=== PATIENT | male | born 1985 | race Caucasian/White ===

== ENCOUNTER 2017-06-11 12:17 | Emergency (ER) | payer BC, OTHER ==
[~2017-06-11] VITALS: Ht 182.9 cm; Wt 124.7 kg
[~2017-06-11 12:17] MED LIST: CLON0.1T PO; LISI10TA2 PO; METO-352 PO; TRM50T PO
--- OUTSIDE RECORDS SUMMARY | 2017-06-11 12:22 | XMS REPORT ---
Author Author JESSIKA PALMER Organization [employer] Address Unknown Phone Unavailable Care Team Providers Care Planning Director Name Role Phone JESSIKA PALMER CP Unavailable Allergies No Known Allergies Problems Problem Type Condition Code Onset Dates Condition Status Assessment Essential hypertension, hypertension with unspecified goal I10 Active Problem Morbid obesity 278.01 Active Problem Nondependent tobacco use disorder 305.1 Active Problem Essential hypertension 401.9 Active Problem GERD (gastroesophageal reflux disease) 530.81 Active Problem Essential hypertension, hypertension with unspecified goal I10 Active Problem Unspecified site of ankle sprain and strain 845.00 Active Problem 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
--- OUTSIDE RECORDS SUMMARY | 2017-06-11 12:23 | XMS REPORT ---
Author Author JESSIKA PALMER Organization [employer] Address Unknown Phone Unavailable Care Team Providers Care Education Dean Name Role Phone JESSIKA PALMER CP Unavailable Allergies, Adverse Reactions, Alerts Substance Reaction Event Type N.K.D.A. Info Not Available Non Drug Allergy Problems Problem Type Condition Code Onset Dates [...] End Date Status Dosage Verapamil HCl CR [facility] [address]-77 240 MG Orally Once a day Nov 21, 2014 1 capsule Cozaar [facility] [address]-83 50 mg Orally Once a day Mar 23, 2014 1 tablet Procedures Procedure Coding System Code Date Office Visit, Est Pt., Level 3 CPT-4 07326 June 14, 2015 Vital Signs Date/Time: June 14, 2015 Temperature 97.8 F Weight 276.8 lbs Height 71 in BMI 38.60 Index Blood Pressure Diastolic 110 mmHg Blood Pressure Systolic 170 mmHg Cardiac Monitoring Heart Rate 90 bpm Results No Known Results Summary Purpose [employer] Submission
--- OUTSIDE RECORDS SUMMARY | 2017-06-11 12:23 | XMS REPORT ---
Author Author ROMIE REBOLLEDO Organization [employer] Address Unknown Phone Unavailable Care Team Providers Care Manufacturing Production Technician Name Role Phone ROMIE REBOLLEDO CP Unavailable Allergies, Adverse Reactions, Alerts Substance Reaction Event Type N.K.D.A. 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 Problem Morbid obesity 278.01 Active Problem Acute upper respiratory infections of unspecified site 465.9 Active Problem Unspecified site of ankle sprain and strain 845.00 Active Medications Medication Code System Code Instructions Start Date End Date Status Dosage Augmentin [facility] [address]-95 875-125 MG Orally every 12 hrs Mar 23, 2015 Apr 02, 2015 1 tablet Benzonatate [facility] [address]-89 200 MG Orally 2 times a day Mar 23, 2015 Apr 06, 2015 1 capsule as needed Cozaar [facility] [address]-70 50 MG Orally Once a day Mar 23, 2014 1 tablet Verapamil HCl CR [facility] [address]-23 240 MG Orally Once a day Nov 21, 2014 1 capsule Procedures Procedure Coding System Code Date Office Visit, Est Pt., Level 3 CPT-4 72376 Mar 23, 2015 Vital Signs Date/Time: Mar 23, 2015 Temperature 98.6 F Weight 280.3 lbs Height 71 in BMI 39.09 Index Blood Pressure Diastolic 120 mmHg Blood Pressure Systolic 180 mmHg Cardiac Monitoring Heart Rate 112 bpm Results No Known Results Summary Purpose [employer] Submission
--- OUTSIDE RECORDS SUMMARY | 2017-06-11 12:23 | XMS REPORT ---
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
--- OUTSIDE RECORDS SUMMARY | 2017-06-11 12:23 | XMS REPORT ---
Author Author EPHRAIM MCKEON Organization [employer] Address Unknown Phone Unavailable Care Team Providers Care Chain Testing Machine Operator Name Role Phone EPHRAIM MCKEON CP Unavailable Allergies, Adverse Reactions, Alerts Substance Reaction Event Type N.K.D.A. Info Not Available Non Drug Allergy Problems Problem Type Condition Code Onset Dates Condition Status Assessment GERD (gastroesophageal reflux disease) 530.81 Active Problem Nondependent tobacco use disorder 305.1 Active Assessment Essential hypertension 401.9 Active Problem GERD (gastroesophageal [...] Instructions Start Date End Date Status Dosage Cozaar [facility] [address]-92 50 MG Orally Once a day Mar 23, 2014 1 tablet Verapamil HCl CR [facility] [address]-86 240 MG Orally Once a day Nov 21, 2014 1 capsule Omeprazole [facility] [address]-59 40 MG Orally Once a day Nov 08, 2014 1 capsule Pepcid AC [facility] [address]20 10 MG Orally daily at 5 pm Nov 21, 2014 2 tablet Procedures Procedure Coding System Code Date Office Visit, Est Pt., Level 4 CPT-4 17935 Nov 21, 2014 Vital Signs Date/Time: Nov 21, 2014 Temperature 97.8 F Weight 274.3 lbs Height 71 in BMI 38.25 Index Blood Pressure Diastolic 108 mmHg Blood Pressure Systolic 180 mmHg Cardiac Monitoring Heart Rate 96 bpm Results No Known Results Summary Purpose [employer]ClinicalWorks Submission
--- OUTSIDE RECORDS SUMMARY | 2017-06-11 12:23 | XMS REPORT ---
Author Author EPRHAIM MCKEON Organization [employer] Address Unknown Phone Unavailable Care Team Providers Care Inbound Call Center Representative Name Role Phone EPHRAIM MCKEON CP Unavailable Allergies, Adverse Reactions, Alerts Substance Reaction Event Type N.K.D.A. Info Not Available Non Drug Allergy Problems Problem Type Condition ICD-9 Code Onset Dates Condition Status Assessment GERD [...] Instructions Start Date End Date Status Dosage Norvasc [facility] [address]-84 5 mg Mar 23, 2014 take 1 tablet by Oral route 2 times per day for high blood pressure Omeprazole [facility] [address]-94 40 MG Orally Once a day Nov 08, 2014 1 capsule Cozaar [facility] [address]-64 50 mg Mar 23, 2014 1 tablet by Oral route 2 times per day Procedures Procedure Coding System Code Date Office Visit, Est Pt., Level 3 CPT-4 15476 Nov 08, 2014 Vital Signs Date/Time: Nov 08, 2014 Temperature 96.9 F Weight 269.8 lbs Height 71 in BMI 37.63 Index Blood Pressure Diastolic 100 mmHg Blood Pressure Systolic 180 mmHg Cardiac Monitoring Heart Rate 82 bpm Results No Known Results Summary Purpose [employer]ClinicalWorks Submission
--- OUTSIDE RECORDS SUMMARY | 2017-06-11 12:23 | XMS REPORT ---
Author Author JESSIKA PALMER Organization [employer] Address Unknown Phone Unavailable Care Team Providers Care Manager Testing Name Role Phone JESSIKA PALMER CP Unavailable Allergies, Adverse Reactions, Alerts Substance Reaction Event Type N.K.D.A. 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 Problem Morbid obesity 278.01 Active Problem Acute upper respiratory infections of unspecified site 465.9 Active Problem Unspecified site of ankle sprain and strain 845.00 Active Medications Medication Code System Code Instructions Start Date End Date Status Dosage Cozaar [facility] [address]-13 50 MG Orally Once a day Mar 23, 2014 1 tablet Verapamil HCl CR [facility] [address]-83 240 MG Orally Once a day Nov 21, 2014 1 capsule Procedures Procedure Coding System Code Date Office Visit, Est Pt., Level 3 CPT-4 48497 Mar 30, 2015 TDAP (BOOSTRIX) CPT-4 03786 Mar 30, 2015 VISUAL ACUITY SCREEN CPT-4 48954 Mar 30, 2015 SINGLE IMMUNIZATION ADMIN CPT-4 33953 Mar 30, 2015 Vital Signs Date/Time: Mar 30, 2015 Temperature 98.4 F Weight 278.6 lbs Height 71 in BMI 38.85 Index Blood Pressure Diastolic 116 mmHg Blood Pressure Systolic 170 mmHg Cardiac Monitoring Heart Rate 88 bpm Results No Known Results Immunizations Vaccine Administration Date TDAP (BOOSTRIX) Mar 30, 2015 Summary Purpose eClinicalWorks Submission
--- OUTSIDE RECORDS SUMMARY | 2017-06-11 12:23 | XMS REPORT ---
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 Unknown Non Drug Allergy Nov, Unknown SOCIAL HISTORY No smoking Hx information available PLAN OF CARE Activity Details Follow Up 2 Weeks Reason:htn VITAL SIGNS Height 71 in 2015-12-08 Weight 278.7 lbs 2015-12-08 Temperature 98.0 degrees Fahrenheit 2015-12-08 Heart Rate 88 bpm 2015-12-08 Respiratory Rate 16 2015-12-08 BMI 38.87 kg/m2 2015-12-08 Blood pressure systolic 152 mmHg 2015-12-08 Blood pressure diastolic 90 mmHg 2015-12-08 MEDICATIONS Medication Instructions Dosage Frequency Start Date End Date Duration Status Clonidine HCl 0.1 MG Orally twice a day 1 tablet 12h Active Cozaar 50 mg Orally twice a day 1 tablet 12h 28 Feb, 2014 Active Metoprolol Succinate ER 50 MG Orally Once a day 1 tablet 24h Active RESULTS No Results PROCEDURES Procedure Date Ordered Related Diagnosis Body Site Office Visit, Est Pt., Level 3 Dec 08, 2015 IMMUNIZATIONS No Known Immunizations
--- OUTSIDE RECORDS SUMMARY | 2017-06-11 12:23 | XMS REPORT ---
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 65915903 Problem Morbid obesity 278.01 Active 142437707 Problem Essential hypertension, hypertension with unspecified goal I10 Active 89769303 Problem Essential hypertension 401.9 Active 72148060 Problem Acute upper respiratory infections of unspecified site 465.9 Active 10116089 Problem Unspecified site of ankle sprain and strain 845.00 Active 06954390 Problem GERD (gastroesophageal reflux disease) 530.81 Active 537525081 Problem Acute pharyngitis 462 Active 395332220 ALLERGIES No Known Allergies SOCIAL HISTORY No smoking Hx information available PLAN OF CARE VITAL SIGNS MEDICATIONS Medication Instructions Dosage Frequency Start Date End Date Duration Status Hydrochlorothiazide 25 MG Orally Once a day .5- 1 tablet 24h Dec, Active Metoprolol Succinate ER 50 mg Orally Once a day 1 tablet 24h Active Clonidine HCl 0.1 MG Orally 3 times a day 1 tablet 8h Active Cozaar 50 mg Orally twice a day 1 tablet 12h Feb, Active RESULTS No Results PROCEDURES No Known procedures IMMUNIZATIONS No Known Immunizations
--- OUTSIDE RECORDS SUMMARY | 2017-06-11 12:23 | XMS REPORT ---
Author Author JESSIKA PALMER Organization [employer] Address Unknown Phone Unavailable Care Team Providers Care Copy Cutter Name Role Phone JESSIKA PALMER CP Unavailable [...] Start Date End Date Status Dosage Cozaar [facility] [address]-43 50 mg Orally twice a day Mar 23, [address] [facility] [address]-79 25 MG Orally Once a day Jan 04, 2016 .5- 1 tablet Metoprolol Succinate ER [facility] [address]-21 50 mg Orally Once a day 1 tablet Clonidine HCl [facility] [address]-40 0.1 MG Orally 3 times a day 1 tablet Procedures Procedure Coding System Code Date Office Visit, Est Pt., Level 3 CPT-4 54885 Jan 04, 2016 Vital Signs Date/Time: Jan 04, 2016 Cardiac Monitoring Heart Rate 76 bpm Weight 277 lbs Height 71 in BMI 38.63 Index Blood Pressure Diastolic 120 mmHg Blood Pressure Systolic 170 mmHg Results No Known Results Summary Purpose eClinicalWorks Submission
--- OUTSIDE RECORDS SUMMARY | 2017-06-11 12:23 | XMS REPORT ---
Author Author JESSIKA PALMER Organization [employer] Address Unknown Phone Unavailable Care Team Providers Care Adventure Therapist Name Role Phone JESSIKA PALMER CP Unavailable [...] Start Date End Date Status Dosage Cozaar [facility] [address]-56 50 mg Orally twice a day Mar 23, 2014 1 tablet Metoprolol Succinate ER [facility] [address]-49 50 MG Orally Once a day 1 tablet Clonidine HCl [facility] [address]-66 0.1 MG Orally twice a day 1 tablet Procedures Procedure Coding System Code Date Office Visit, Est Pt., Level 3 CPT-4 54771 Dec 21, 2015 Vital Signs Date/Time: Dec 21, 2015 Cardiac Monitoring Heart Rate 89 bpm Weight 278 lbs Height 71 in BMI 38.77 Index Blood Pressure Diastolic 110 mmHg Blood Pressure Systolic 190 mmHg Results No Known Results Summary Purpose eClinicalWorks Submission
--- OUTSIDE RECORDS SUMMARY | 2017-06-11 12:23 | XMS REPORT ---
Author Author JESSIKA PALMER 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 Unknown Non Drug Allergy Jan, Unknown SOCIAL HISTORY No smoking Hx information available PLAN OF CARE Activity Details Follow Up 4 Weeks Reason:htn VITAL SIGNS Height 71 in 2016-02-22 Weight 274.1 lbs 2016-02-22 Temperature 98.0 degrees Fahrenheit 2016-02-22 Heart Rate 78 bpm 2016-02-22 Respiratory Rate 16 2016-02-22 BMI 38.23 kg/m2 2016-02-22 Blood pressure systolic 140 mmHg 2016-02-22 Blood pressure diastolic 94 mmHg 2016-02-22 MEDICATIONS Medication Instructions Dosage Frequency Start Date End Date Duration Status Hydrochlorothiazide 25 MG Orally Once a day .5- 1 tablet 24h 90 days Active Metoprolol Succinate ER 100 MG Orally Once a day 1 tablet 24h 90 days Active Cozaar 50 mg Orally twice a day 1 tablet 12h 28 Feb, 2014 0 days Active Clonidine HCl 0.1 MG Orally 3 times a day 1 tablet 8h 30 Active RESULTS No Results PROCEDURES Procedure Date Ordered Related Diagnosis Body Site Office Visit, Est Pt., Level 3 Feb 22, 2016 IMMUNIZATIONS No Known Immunizations
--- OUTSIDE RECORDS SUMMARY | 2017-06-11 12:24 | XMS REPORT | Continuity of Care Document ---
Author Author [facility] Organization [facility] Address Unknown Phone Unavailable Allergies Active Description Code Type Severity Reaction Onset Reported/Identified Relationship to Patient Clinical Status Yes No Known Drug Allergies [id number] Drug Allergy Unknown N/A 08/04/2013 Medications There is no data. Problems Date Dx Coded Attending Type Code Diagnosis Diagnosed By 07/18/2009 MARSHA SHER APRN R 477.9 RHINITIS 07/18/2009 MARSHA SHER APRN R 477.9 RHINITIS 07/18/2009 MARSHA SHER APRN R 477.9 RHINITIS 07/18/2009 ENRIQUE ARGUELLO AMANDA K 477.9 RHINITIS 07/18/2009 TAYLOR NAZARIO APRN E 477.9 RHINITIS 07/18/2009 NUNEZ DO, AMANDA K 477.9 RHINITIS 12/07/2009 APRIL SHER APRNIA R V01.9 CONTACT WITH OR EXPOSURE TO UNSPECIFIED COMMUNICABLE DISEASE 12/07/2009 APRIL SHER APRNIA R V01.9 CONTACT WITH OR EXPOSURE TO UNSPECIFIED COMMUNICABLE DISEASE 12/07/2009 APRIL SHER APRNIA R V01.9 CONTACT WITH OR EXPOSURE TO UNSPECIFIED COMMUNICABLE DISEASE 12/07/2009 NUNEZ , AMANDA K V01.9 CONTACT WITH OR EXPOSURE TO UNSPECIFIED COMMUNICABLE DISEASE 12/07/2009 TAYLOR NAZARIO APRN E V01.9 CONTACT WITH OR EXPOSURE TO UNSPECIFIED COMMUNICABLE DISEASE 12/07/2009 NUNEZ DO, AMANDA K V01.9 CONTACT WITH OR EXPOSURE TO UNSPECIFIED COMMUNICABLE DISEASE 05/23/2010 MARSHA SHER APRN R 311 DEPRESSIVE DISORDER NOS 05/23/2010 MARSHA SHER APRN R 401.1 ESSENTIAL HYPERTENSION BENIGN 05/23/2010 MARSHA SHER APRN R 311 DEPRESSIVE DISORDER NOS 05/23/2010 APRIL SHER APRNIA R 401.1 ESSENTIAL HYPERTENSION BENIGN 05/23/2010 APRIL SHER APRNIA R 311 DEPRESSIVE DISORDER NOS 05/23/2010 CHRISTOS MCNEIL MARSHA R 401.1 ESSENTIAL HYPERTENSION BENIGN 05/23/2010 NUNEZ DO, AMANDA K 311 DEPRESSIVE DISORDER NOS 05/23/2010 NUNEZ DO, AMANDA K 401.1 ESSENTIAL HYPERTENSION BENIGN 05/23/2010 HELGHASSAN MCNEIL, TAYLOR E 311 DEPRESSIVE DISORDER NOS 05/23/2010 HELLWIG PILLOWCASE MAKER, TAYLOR E 401.1 ESSENTIAL HYPERTENSION BENIGN 05/23/2010 NUNEZ DO, AMANDA K 311 DEPRESSIVE DISORDER NOS 05/23/2010 NUNEZ DO, AMANDA K 401.1 ESSENTIAL HYPERTENSION BENIGN 04/20/2012 CHRISTOS MCNEIL MARSHA R 278.01 OBESITY MORBID 04/20/2012 CHRISTOS PILLOWCASE MAKER MARSHA R 291.9 ALCOHOL DISORDERS 04/20/2012 CHRISTOS MCNEIL MARSHA R 305.1 NICOTINE DEPENDENCE 04/20/2012 CHRISTOS MCNEIL MARSHA R 278.01 OBESITY MORBID 04/20/2012 CHRISTOS MCNEIL MARSHA R 291.9 ALCOHOL DISORDERS 04/20/2012 CHRISTOS MCNEIL MARSHA R 305.1 NICOTINE DEPENDENCE 04/20/2012 CHRISTOS MCNEIL MARSHA R 278.01 OBESITY MORBID 04/20/2012 CHRISTOS MCNEIL MARSHA R 291.9 ALCOHOL DISORDERS 04/20/2012 CHRISTOS MCNEIL MARSHA R 305.1 NICOTINE DEPENDENCE 04/20/2012 NUNEZ DO, AMANDA K 278.01 OBESITY MORBID 04/20/2012 NUNEZ DO, AMANDA K 291.9 ALCOHOL DISORDERS 04/20/2012 NUNEZ DO, AMANDA K 305.1 NICOTINE DEPENDENCE 04/20/2012 KAROLINEFARA MCNEIL TAYLOR E 278.01 OBESITY MORBID 04/20/2012 MANSI MCNEIL TAYLOR E 291.9 ALCOHOL DISORDERS 04/20/2012 KAROLINEFARA DUMASN TAYLOR E 305.1 NICOTINE DEPENDENCE 04/20/2012 NUNEZ DO, AMANDA K 278.01 OBESITY MORBID 04/20/2012 NUNEZ DO, AMANDA K 291.9 ALCOHOL DISORDERS 04/20/2012 NUNEZ DO, AMANDA K 305.1 NICOTINE DEPENDENCE 03/03/2013 CHRISTOS MCNEIL MARSHA R 465.9 UPPER RESPIRATORY INFECTION 03/03/2013 NUNEZ DO, AMANDA K 465.9 UPPER RESPIRATORY INFECTION 03/03/2013 MANSI MCNEIL TAYLOR E 465.9 UPPER RESPIRATORY INFECTION 03/03/2013 NUNEZ DO, AMANDA K 465.9 UPPER RESPIRATORY INFECTION 08/04/2013 KARLY WELLS APRN Ot 845.00 SPRAIN OF ANKLE NOS 08/04/2013 KARLY WELLS APRN Ot E019.9 OTHER ACTIVITY INVOLVING ANIMAL CARE 08/04/2013 KARLY WELLS APRN Ot E927.0 OVEREXERTION FROM SUDDEN STRENUOUS MOVEM 08/09/2013 ENRIQUE AMANDA ARGUELLO K 845.00 UNSPECIFIED SITE OF ANKLE SPRAIN 08/09/2013 TAYLOR NAZARIO APRN 845.00 UNSPECIFIED SITE OF ANKLE SPRAIN 08/09/2013 ENRIQUE ARGUELLO AMANDA K 845.00 UNSPECIFIED SITE OF ANKLE SPRAIN 01/28/2014 TAYLOR NAZARIO APRN 462 ACUTE PHARYNGITIS 01/28/2014 AMANDA NUNEZ DO 462 ACUTE PHARYNGITIS 12/09/2015 CHARANJIT FOLEY MD Ot I16.0 HYPERTENSIVE URGENCY 12/09/2015 CHARANJIT FOLEY MD Ot R07.9 CHEST PAIN, UNSPECIFIED 12/09/2015 CHARANJIT FOLEY MD, Ot Z91.14 PATIENT'S OTHER NONCOMPLIANCE WITH MEDIC Procedures There is no data. Results Test Result Range Complete blood count (CBC) with automated white blood cell (WBC) differential - 12/05/15 06:12 Blood leukocytes automated count (number/volume) 6.9 10*3/uL 4.3-11.0 Blood erythrocytes automated count (number/volume) 4.87 10*6/uL 4.35-5.85 Venous blood hemoglobin measurement (mass/volume) 15.2 g/dL 13.3-17.7 Blood hematocrit (volume fraction) 44 % 40-54 Automated erythrocyte mean corpuscular volume 91 [foz_us] 80-99 Automated erythrocyte mean corpuscular hemoglobin (mass per erythrocyte) 31 pg 25-34 Automated erythrocyte mean corpuscular hemoglobin concentration measurement ( mass/volume) 34 g/dL 32-36 Automated erythrocyte distribution width ratio 12.5 % 10.0-14.5 Automated blood platelet count (count/volume) 251 10*3/uL 130-400 Automated blood platelet mean volume measurement 11.0 [foz_us] 7.4-10.4 Automated blood neutrophils/100 leukocytes 51 % 42-75 Automated blood lymphocytes/100 leukocytes 34 % 12-44 Blood monocytes/100 leukocytes 10 % 0-12 Automated blood eosinophils/100 leukocytes 3 % 0-10 Automated blood basophils/100 leukocytes 1 % 0-10 Blood neutrophils automated count (number/volume) 3.6 10*3 1.8-7.8 Blood lymphocytes automated count (number/volume) 2.4 10*3 1.0-4.0 Blood monocytes automated count (number/volume) 0.7 10*3 0.0-1.0 Automated eosinophil count 0.2 10*3/uL 0.0-0.3 Automated blood basophil count (count/volume) 0.1 10*3/uL 0.0-0.1 Comprehensive metabolic panel - 12/05/15 06:12 Serum or plasma sodium measurement (moles/volume) 140 mmol/L 135-145 Serum or plasma potassium measurement (moles/volume) 4.0 mmol/L 3.6-5.0 Serum or plasma chloride measurement (moles/volume) 110 mmol/L 98-107 Carbon dioxide 17 mmol/L 21-32 Serum or plasma anion gap determination (moles/volume) 13 mmol/L 5-14 Serum or plasma urea nitrogen measurement (mass/volume) 16 mg/dL 7-18 Serum or plasma creatinine measurement (mass/volume) 0.97 mg/dL 0.60-1.30 Serum or plasma urea nitrogen/creatinine mass ratio 16 NRG Serum or plasma creatinine measurement with calculation of estimated glomerular filtration rate > NRG Serum or plasma glucose measurement (mass/volume) 96 mg/dL 70-105 Serum or plasma calcium measurement (mass/volume) 9.4 mg/dL 8.5-10.1 Serum or plasma total bilirubin measurement (mass/volume) 0.2 mg/dL 0.1-1.0 Serum or plasma alkaline phosphatase measurement (enzymatic activity/volume) 87 U/L 40-136 Serum or plasma aspartate aminotransferase measurement (enzymatic activity/ volume) 25 U/L 5-34 Serum or plasma alanine aminotransferase measurement (enzymatic activity/volume ) 40 U/L 0-55 Serum or plasma protein measurement (mass/volume) 7.7 g/dL 6.4-8.2 Serum or plasma albumin measurement (mass/volume) 4.4 g/dL 3.2-4.5 Serum or plasma troponin i.cardiac measurement (mass/volume) - 12/05/15 06:12 Serum or plasma troponin i.cardiac measurement (mass/volume) < ng/ mL <0.30 CMP - 04/24/17 17:28 GLUCOSE 102 mg/dL 65-99 UREA NITROGEN (BUN) 21 mg/dL 7-25 CREATININE 1.27 mg/dL 0.60-1.35 eGFR NON-AFR. BERMUDIAN 75 mL/min/1.73m2 > OR=60 eGFR 87 mL/min/1.73m2 > OR=60 BUN/CREATININE RATIO NOT APPLICABLE (calc) 6-22 SODIUM 141 mmol/L 135-146 POTASSIUM 4.0 mmol/L 3.5-5.3 CHLORIDE 106 mmol/L 98-110 CARBON DIOXIDE 25 mmol/L 20-31 CALCIUM 9.4 mg/dL 8.6-10.3 PROTEIN, TOTAL 6.6 g/dL 6.1-8.1 ALBUMIN 4.2 g/dL 3.6-5.1 GLOBULIN 2.4 g/dL (calc) 1.9-3.7 ALBUMIN/GLOBULIN RATIO 1.8 (calc) 1.0-2.5 BILIRUBIN, TOTAL 0.3 mg/dL 0.2-1.2 ALKALINE PHOSPHATASE 76 U/L 40-115 AST 31 U/L 10-40 ALT 42 U/L 9-46 Encounters ACCT No. Visit Date/Time Discharge Status Pt. Type Provider Facility Loc./Unit Complaint [id number] 12/05/2015 06:00:00 12/05/2015 23:59:59 CLS Outpatient CHARANJIT FOLEY MD [facility] ER HTN PROBLEMS,CHEST TIGHTNESS [id number] 08/04/2013 18:29:00 08/04/2013 19:37:00 DIS Emergency KARLY WELLS APRN [facility] ER R ANKLE INJ [id number] 04/24/2017 16:40:00 04/24/2017 23:59:59 [facility] [id number] 04/24/2017 16:40:00 Document Registration [id number] 03/09/2014 13:45:00 03/09/2014 23:59:59 CLS Outpatient AMANDA NUNEZ DO [id number] 01/28/2014 13:46:00 01/28/2014 23:59:59 CLS Outpatient HELLTAYLOR CHAUDHARI APRN [id number] 08/09/2013 17:56:00 08/09/2013 23:59:59 CLS Outpatient AMANDA NUNEZ DO [id number] 03/03/2013 15:31:00 03/03/2013 23:59:59 CLS Outpatient MARSHA SHER APRN [id number] 05/05/2012 14:13:00 05/05/2012 23:59:59 CLS Outpatient MARSHA SHER APRN [id number] 04/20/2012 13:39:00 04/20/2012 23:59:59 CLS Outpatient MARSHA SHER APRN
[2017-06-11] MEDS ORDERED: HYDR25TA4 PO (12:40)
--- NOTE | 2017-06-11 12:44 | ED Headache ---
General Chief Complaint: Head/Cervical Problems Stated Complaint: MIGRAINE,BLURRED RIGHT VISION Nursing Triage Note: pt reports frontal migraine that is more severe around l eye x 4 days. pt reports 2 days ago he started having internittent blurry vision in r eye. Pt has hx of hypertension and a month ago started dione up on his meds. Pt also reports he did not take his Losartan today. Nursing Sepsis Screen: No Definite Risk Source: patient Exam Limitations: no limitations History of Present Illness Date Seen by Provider: Jun 11, 2017 Time Seen by Provider: 12:42 Initial Comments To ER with reports of a left frontal migraine for 4 days. He has a remote history of migraines as a child but none for many years. He's also had intermittent blurry vision to the right eye for 2 days. These episodes lasted for 20 minutes each time and resolved spontaneously without treatment. Most recently this morning. Currently his vision is back to normal. He rates his headache a 5 out of 10. He denies any vision changes right now. His headache is left frontal but his visual disturbance is right eye. His blood pressure is 152/ 111 which is actually an improvement for him, he was recently restarted back on his antihypertensives. He describes his blurred vision in the right eye as "looking at sunlight on the water". She is on losartan 100 mg in the morning, 50 g at at bedtime, HCTZ 25 mg daily, Toprol unknown dose once daily. Timing/Duration: 1 week Severity/Quality: constant Allergies and Home Medications Allergies Coded Allergies: No Known Drug Allergies (Unverified , 08/04/13) Home Medications Clonidine HCl 0.1 Mg Tablet, 0.1 MG PO BID Prescribed by: CHARANJIT FOLEY on 12/05/15 09 Lisinopril 10 Mg Tablet, 10 MG PO BID, (Reported) Metoprolol Succinate 50 Mg Tab.er.24h, 50 MG PO DAILY Prescribed by: CHARANJIT FOLEY on 12/05/15 0900 Tramadol Hcl 50 Mg Tab, 50 MG PO Q4-6HR PRN for PAIN FOR PAIN Prescribed by: KARLY WELLS on 08/04/13 983 Patient Home Medication List Home Medication List Reviewed: Yes Review of Systems Constitutional: see HPI Eyes: See HPI, Blindness Ears, Nose, Mouth, Throat: no symptoms reported Respiratory: no symptoms reported Cardiovascular: no symptoms reported Genitourinary: no symptoms reported Musculoskeletal: no symptoms reported Skin: no symptoms reported Psychiatric/Neurological: No Symptoms Reported Past Vwwmbmi-Xztdze-Bwpcpa Hx Patient Social History Alcohol Use: Regular Use Number of Drinks Today: AA Alcohol Beverage of Choice: Beer Recreational Drug Use: No Smoking Status: Never a Smoker Type Used: Smokeless Tobacco Recent Foreign Travel: No Contact w/Someone Who Travel: No Recent Infectious Disease Expo: No Recent Hopitalizations: No Physical Abuse: No Sexual Abuse: No Fear: No Seasonal Allergies Seasonal Allergies: No Past Medical History Surgeries: No Respiratory: No Cardiac: Yes Hypertension Neurological: No Reproductive Disorders: No Gastrointestinal: Yes Ulcer Musculoskeletal: No Endocrine: No Cancer: No Psychosocial: No Nursing Suicide Risk Score: 0 Integumentary: No Blood Disorders: No Physical Exam Vital Signs Vital Signs - First Documented 06/11/17 12:30 Temp 97.4 Pulse 67 Resp 18 B/P (MAP) 156/111 (126) Pulse Ox 98 Capillary Refill : Less Than 3 Seconds General Appearance: WD/WN, no apparent distress HEENT: PERRL/EOMI, normal ENT inspection, other (visual acuity in the emergency room is 20/15 left eye, 20/13 right eye) Neck: non-tender, full range of motion Respiratory: no respiratory distress, no accessory muscle use Gastrointestinal: normal bowel sounds, non tender Extremities: normal range of motion, non-tender Psychiatric: alert, oriented x 3 Crainal Nerves: normal hearing, normal speech, PERRL Skin: normal color, warm/dry Progress/Results/Core Measures Lab Results Laboratory Tests Test 06/11/17 12:50 Range/Units White Blood Count 7.9 4.3-11.0 10^3/uL Red Blood Count 4.63 4.35-5.85 10^6/uL Hemoglobin 14.5 13.3-17.7 G/DL Hematocrit 42 40-54 % Mean Corpuscular Volume 90 80-99 FL Mean Corpuscular Hemoglobin 31 25-34 PG Mean Corpuscular Hemoglobin Concent 35 32-36 G/DL Red Cell Distribution Width 12.5 10.0-14.5 % Platelet Count 223 130-400 10^3/uL Mean Platelet Volume 11.5 H 7.4-10.4 FL Neutrophils (%) (Auto) 57 42-75 % Lymphocytes (%) (Auto) 31 12-44 % Monocytes (%) (Auto) 10 0-12 % Eosinophils (%) (Auto) 2 0-10 % Basophils (%) (Auto) 1 0-10 % Neutrophils # (Auto) 4.5 1.8-7.8 X 10^3 Lymphocytes # (Auto) 2.5 1.0-4.0 X 10^3 Monocytes # (Auto) 0.8 0.0-1.0 X 10^3 Eosinophils # (Auto) 0.2 0.0-0.3 10^3/uL Basophils # (Auto) 0.1 0.0-0.1 10^3/uL Sodium Level 139 135-145 MMOL/L Potassium Level 4.2 3.6-5.0 MMOL/L Chloride Level 108 H 98-107 MMOL/L Carbon Dioxide Level 22 21-32 MMOL/L Anion Gap 9 5-14 MMOL/L Blood Urea Nitrogen 21 H 7-18 MG/DL Creatinine 1.15 0.60-1.30 MG/DL Estimat Glomerular Filtration Rate > 60 BUN/Creatinine Ratio 18 Glucose Level 95 70-105 MG/DL Calcium Level 8.7 8.5-10.1 MG/DL Total Bilirubin 0.4 0.1-1.0 MG/DL Aspartate Amino Transf (AST/SGOT) 31 5-34 U/L Alanine Aminotransferase (ALT/SGPT) 49 0-55 U/L Alkaline Phosphatase 60 40-136 U/L Total Protein 6.9 6.4-8.2 GM/DL Albumin 4.2 3.2-4.5 GM/DL My Orders Orders - KARLY WELLS APRN Cbc With Automated Diff (06/11/17 12:35) Comprehensive Metabolic Panel (06/11/17 12:35) Saline Lock/Iv-Start (06/11/17 12:35) Ct Head Wo (06/11/17 12:35) Ketorolac Injection (Toradol Injection) (06/11/17 12:45) Ns Iv 1000 Ml (Sodium Chloride 0.9%) (06/11/17 12:45) Clonidine Tablet (Catapres Tablet) (06/11/17 13:45) Medications Given in ED Current Medications Medications Dose Ordered Sig/Ever Route Start Time Stop Time Status Last Admin Dose Admin Clonidine HCl 0.2 mg ONCE ONCE PO 06/11/17 13:45 06/11/17 13:46 DC 06/11/17 13:47 0.2 MG Ketorolac Tromethamine 15 mg ONCE ONCE IVP 06/11/17 12:45 06/11/17 12:46 DC 06/11/17 12:48 15 MG Vital Signs/I&O 06/11/17 12:30 Temp 97.4 Pulse 67 Resp 18 B/P (MAP) 156/111 (126) Pulse Ox 98 Blood Pressure Mean: 126 Diagonstic Imaging: CT Comments NAME: [facility] REC#: [id number] PT STATUS: REG ER : 1985 PHYSICIAN: KARLY WELLS DIESEL SERVICE APPRENTICE ADMIT DATE: 06/11/17/ER Draft Date of Exam:06/11/17 CT HEAD WO PROCEDURE: CT head without contrast. TECHNIQUE: Multiple contiguous axial images were obtained through the brain without the use of intravenous contrast. INDICATION: Three days history of migraine head pain, right eye visual changes. COMPARISON: No priors. FINDINGS: There is no intracranial hemorrhage, hydrocephalus, edema, mass, or mass effect. There is no evidence for an elevation of the intracranial pressures. Sulci are non-effaced. The basilar cisterns are patent. The orbits and paranasal sinuses are unremarkable where visualized. IMPRESSION: Normal CT head. Dictated on workstation # [id number] Dict: 06/11/17 1304 Trans: 06/11/17 1310 [id number] Interpreted by: DARIEL HENDRIX Electronically signed by: Departure Communication (Admissions) 1334- Headache improved from a 6 out of 10 to a 2 out of 10 after Toradol. I did speak with Dr. Middleton's office. Dr. bailey could see him at the [place] office 9:15 Friday morning. Despite his improving symptoms his blood pressure has risen to 194/120. We will give clonidine and observed. 1440- blood pressure down to 162/99 after 0.2 mg by mouth clonidine Impression Primary Impression: Headache Additional Impressions: intermittent blurred vision Hypertension Disposition: 01 HOME, SELF-CARE Condition: Stable Departure-Patient Inst. Decision time for Depature: 13:32 Referrals: [facility] (PCP/Family) Primary Care Physician CHALO ROONEY OD Patient Instructions: Headache, Adult (DC) Add. Discharge Instructions: 1. Youre scheduled to [facility] Dr. Bailey [facility] [place] [facility] here in [place] Friday morning at 9:15 AM. He should arrive about 10 minutes early and bring a current medication list with you. 2. Return to ER for any concerns 2. Tylenol and Motrin for headaches. 3. Follow-up with your primary care provider as soon as possible to adjust your blood pressure medications Copy Copies To 1: CHALO ROONEY OD, PETER J APRN Jun 11, 2017 12:44
[2017-06-11] MEDS ORDERED: NS IV 1000 ML 1,000 ML IV SCH (12:45)
[2017-06-11] MEDS ORDERED: KETOROLAC 30 MG/ML VIAL IVP ONE (12:45)
[2017-06-11 13:02] LABS: BASOPHILS # (AUTO) 0.1 10^3/uL (0.0-0.1); BASOPHILS % (AUTO) 1 % (0-10); EOSINOPHILS # (AUTO) 0.2 10^3/uL (0.0-0.3); EOSINOPHILS % (AUTO) 2 % (0-10); HEMATOCRIT 42 % (40-54); HEMOGLOBIN 14.5 G/DL (13.3-17.7); LYMPHOCYTES # (AUTO) 2.5 X 10^3 (1.0-4.0); LYMPHOCYTES % (AUTO) 31 % (12-44); MEAN CORPUSCULAR HEMOGLOBIN 31 PG (25-34); MEAN CORPUSCULAR HGB CONC 35 G/DL (32-36); MEAN CORPUSCULAR VOLUME 90 FL (80-99); MEAN PLATELET VOLUME 11.5 FL (7.4-10.4); MONOCYTES # (AUTO) 0.8 X 10^3 (0.0-1.0); MONOCYTES % (AUTO) 10 % (0-12); NEUTROPHILS # (AUTO) 4.5 X 10^3 (1.8-7.8); NEUTROPHILS % (AUTO) 57 % (42-75); PLATELET COUNT 223 10^3/uL (130-400); RED BLOOD COUNT 4.63 10^6/uL (4.35-5.85); RED CELL DISTRIBUTION WIDTH 12.5 % (10.0-14.5); WHITE BLOOD COUNT 7.9 10^3/uL (4.3-11.0)
--- NOTE | 2017-06-11 13:11 | Diagnostic Imaging Report ---
PROCEDURE: CT head without contrast. TECHNIQUE: Multiple contiguous axial images were obtained through the brain without the use of intravenous contrast. INDICATION: Three days history of migraine head pain, right eye visual changes. COMPARISON: No priors. FINDINGS: There is no intracranial hemorrhage, hydrocephalus, edema, mass, or mass effect. There is no evidence for an elevation of the intracranial pressures. Sulci are non-effaced. The basilar cisterns are patent. The orbits and paranasal sinuses are unremarkable where visualized. IMPRESSION: Normal CT head. Dictated by: Dictated on workstation # [id number]
[2017-06-11 13:21] LABS: ALANINE AMINOTRANSFERASE 49 U/L (0-55); ALBUMIN 4.2 GM/DL (3.2-4.5); ALKALINE PHOSPHATASE 60 U/L (40-136); BILIRUBIN,TOTAL 0.4 MG/DL (0.1-1.0); BUN/CREATININE RATIO 18; CALCIUM 8.7 MG/DL (8.5-10.1); CARBON DIOXIDE 22 MMOL/L (21-32); CHLORIDE 108 MMOL/L (98-107); CREATININE SERUM 1.15 MG/DL (0.60-1.30); GFR ESTIMATED > 60; GLUCOSE 95 MG/DL (70-105); POTASSIUM 4.2 MMOL/L (3.6-5.0); SODIUM 139 MMOL/L (135-145); TOTAL PROTEIN 6.9 GM/DL (6.4-8.2)
[2017-06-11] MEDS ORDERED: cloNIDine 0.1 MG (CATAPRES) TAB PO ONE (13:45)
[2017-06-11 14:43] VITALS: BP 162/99
== END 2017-06-11 14:43 | disposition home or self-care (01) ==
LOC: EDUNIT# 12:17 → ER 12:19
DX: R51 Headache (principal); H57.8 Other specified disorders of eye and adnexa; I10 Essential (primary) hypertension; Z87.19 Personal history of other diseases of the digestive system
CPT/HCPCS: 36415; 70450; 80053; 85025; 96361; 96374

== ENCOUNTER → 2017-09-25 | Outpatient (CLI) | payer BC ==
[~2017-09-25] MED LIST changes: +HYDR25TA4 PO
--- NOTE | 2017-09-25 09:34 | Diagnostic Imaging Report ---
INDICATION: Hypertension. Grayscale imaging of the kidneys is performed bilaterally with Doppler evaluation of bilateral renal arteries. Spectral analysis was also utilized. Right and left kidneys measure 11 x 5.9 x 6.4 cm and 12 x 4.4 x 3.6 cm, respectively. There is no evidence of hydronephrosis or renal mass. Proximal renal arteries are obscured by overlying bowel. There is no evidence of renal artery occlusion or focal velocity elevation. Resistive indices range from 0.6-0.7 on the right and 0.5 to 0.6 on the left. No perinephric fluid collection is identified. Bladder was not imaged. IMPRESSION: No renal abnormality is identified. Resistive indices and right kidney are at the upper limits of normal. Dictated by: Dictated on workstation # [id number]
== END ==
LOC: CARD 07:56
PROVIDERS: ATTEND Family Medicine
DX: I10 Essential (primary) hypertension (principal)
CPT/HCPCS: 93975

== ENCOUNTER 2018-11-21 14:23 | Emergency (ER) | payer SELFPAY ==
[~2018-11-21] VITALS: Ht 182.8 cm; Wt 124.5 kg
[2018-11-21 14:48] LABS: BASOPHILS # (AUTO) 0.1 10^3/uL (0.0-0.1); BASOPHILS % (AUTO) 0 % (0-10); EOSINOPHILS # (AUTO) 0.1 10^3/uL (0.0-0.3); EOSINOPHILS % (AUTO) 0 % (0-10); HEMATOCRIT 48 % (40-54); HEMOGLOBIN 16.8 G/DL (13.3-17.7); LYMPHOCYTES # (AUTO) 1.7 X 10^3 (1.0-4.0); LYMPHOCYTES % (AUTO) 12 % (12-44); MEAN CORPUSCULAR HEMOGLOBIN 31 PG (25-34); MEAN CORPUSCULAR HGB CONC 35 G/DL (32-36); MEAN CORPUSCULAR VOLUME 88 FL (80-99); MEAN PLATELET VOLUME 11.4 FL (7.4-10.4); MONOCYTES # (AUTO) 1.3 X 10^3 (0.0-1.0); MONOCYTES % (AUTO) 9 % (0-12); NEUTROPHILS # (AUTO) 10.9 X 10^3 (1.8-7.8); NEUTROPHILS % (AUTO) 78 % (42-75); PLATELET COUNT 285 10^3/uL (130-400); RED CELL DISTRIBUTION WIDTH 13.3 % (10.0-14.5)
--- NOTE | 2018-11-21 14:59 | Diagnostic Imaging Report ---
INDICATION: Hypertension and lightheadedness. PA and lateral views of the chest were obtained. FINDINGS: The heart size, mediastinal configuration, and pulmonary vascularity are within normal limits. There is no pleural effusion, pneumothorax, or pneumonia. The osseous structures are unremarkable. IMPRESSION: No acute cardiopulmonary abnormality. Dictated by: Dictated on workstation # [id number]
[2018-11-21 15:09] LABS: ALANINE AMINOTRANSFERASE 76 U/L (0-55); ALBUMIN 4.7 GM/DL (3.2-4.5); ALKALINE PHOSPHATASE 72 U/L (40-136); BILIRUBIN,TOTAL 0.8 MG/DL (0.1-1.0); BUN/CREATININE RATIO 6; CALCIUM 9.8 MG/DL (8.5-10.1); CARBON DIOXIDE 26 MMOL/L (21-32); CHLORIDE 99 MMOL/L (98-107); CREATININE SERUM 2.24 MG/DL (0.60-1.30); GFR ESTIMATED 34; GLUCOSE 122 MG/DL (70-105); POTASSIUM 3.2 MMOL/L (3.6-5.0); SODIUM 139 MMOL/L (135-145); TOTAL PROTEIN 8.1 GM/DL (6.4-8.2)
--- NOTE | 2018-11-21 15:09 | ED Respiratory ---
General Chief Complaint: Respiratory Problems Stated Complaint: SOA Nursing Triage Note: PT TO ED W/ C/O RECENT ONSET SOB, DIFFICULTY FOCUSING, DIZZINESS ET TINGLING IN ARMS AFTER CHANGES IN BP MEDS. REPORTS WAS TAKEN OFF METOPROLOL ET HCTZ, IS STILL TAKING LOSARTAN ET HAS ADDED AMLODIPINE ET ANOTHER BP MED BUT IS UNSURE OF THE NAME. REPORTS DID TAKE 2 PUFFS OF HIS WIFES ALBUTEROL INHALER ET NOTED IMPROVEMENT. Source: patient Exam Limitations: no limitations History of Present Illness Date Seen by Provider: Nov 21, 2018 Time Seen by Provider: 15:06 Initial Comments To ER with reports of shortness of breath difficulty focusing dizziness and tingling in his arms beginning on Friday of this past week, on Friday he was started on new medications. Friday his blood pressure which is historically been difficult to control and even on medications he was around 190 systolic. He was taken off of metoprolol and hydrochlorothiazide on Friday, the losartan was continued, Norvasc was added and another blood pressure medication was added (unsure which one). He was also started on citalopram on Friday. He checked his blood pressure that night and found that it had dropped down to 120 over 80s. Timing/Duration: constant Severity: moderate Associated Symptoms: denies symptoms Allergies and Home Medications Allergies Coded Allergies: No Known Drug Allergies (Unverified , 08/04/13) Home Medications Clonidine HCl 0.1 Mg Tablet, 0.1 MG PO BID Prescribed by: CHARANJIT FOLEY on 12/05/15 0900 Lisinopril 10 Mg Tablet, 10 MG PO BID, (Reported) Metoprolol Succinate 50 Mg Tab.er.24h, 50 MG PO DAILY Prescribed by: CHARANJIT FOLEY on 12/05/15 0900 Tramadol Hcl 50 Mg Tab, 50 MG PO Q4-6HR PRN for PAIN FOR PAIN Prescribed by: KARLY WELLS on 08/04/13 1903 Patient Home Medication List Home Medication List Reviewed: Yes Review of Systems Review of Systems Constitutional: see HPI EENTM: see HPI Respiratory: no symptoms reported Cardiovascular: no symptoms reported Genitourinary: no symptoms reported Musculoskeletal: no symptoms reported Skin: no symptoms reported Psychiatric/Neurological: See HPI Hematologic/Lymphatic: No Symptoms Reported Immunological/Allergic: no symptoms reported Past Tpryeyw-Mtdhvk-Tsdxbh Hx Patient Social History Alcohol Use: Occasionally Uses Alcohol Beverage of Choice: Beer Recreational Drug Use: No Type Used: Smokeless Tobacco Recent Foreign Travel: No Contact w/Someone Who Travel: No Recent Infectious Disease Expo: No Recent Hopitalizations: No Physical Abuse: No Sexual Abuse: No Mistreated: No Fear: No Seasonal Allergies Seasonal Allergies: No Past Medical History Surgeries: No Respiratory: No Cardiac: Yes Hypertension Neurological: No Reproductive Disorders: No Gastrointestinal: Yes Ulcer Musculoskeletal: No Endocrine: No Cancer: No Psychosocial: No Integumentary: No Blood Disorders: No Physical Exam Vital Signs - First Documented 11/21/18 14:26 Temp 36.5 Pulse 100 Resp 20 B/P (MAP) 121/82 (95) Capillary Refill : Less Than 3 Seconds Height: 6'0" Weight: 275lbs. oz. 124.503866lk; 37.00 BMI Method:Stated General Appearance: WD/WN, no apparent distress, other (blood pressure 120 over 80s, speech is clear GCS 15 ambulatory to room 6 without difficulty) Eyes: Bilateral Eye Normal Inspection, Bilateral Eye PERRL, Bilateral Eye EOMI HEENT: PERRL/EOMI, normal ENT inspection Neck: non-tender, full range of motion Respiratory: lungs clear, normal breath sounds, no respiratory distress, no accessory muscle use; No wheezing Gastrointestinal: normal bowel sounds, non tender, soft Extremities: normal range of motion, non-tender Neurologic/Psychiatric: alert, normal mood/affect, oriented x 3 Skin: normal color, warm/dry Progress/Results/Core Measures Suspected Sepsis Recent Fever Within 48 Hours: No Infection Criteria Present: None New/Unexplained Altered Menta: No Sepsis Screen: No Definite Risk SIRS Temperature: Pulse: 100 Respiratory Rate: 20 Laboratory Tests 11/21/18 14:35: White Blood Count 14.0H Blood Pressure 121 /82 Mean: 95 Laboratory Tests 11/21/18 14:35: Creatinine 2.24H, Platelet Count 285, Total Bilirubin 0.8 Results/Orders Lab Results Laboratory Tests Test 11/21/18 14:35 Range/Units White Blood Count 14.0 H 4.3-11.0 10^3/uL Red Blood Count 5.43 4.35-5.85 10^6/uL Hemoglobin 16.8 13.3-17.7 G/DL Hematocrit 48 40-54 % Mean Corpuscular Volume 88 80-99 FL Mean Corpuscular Hemoglobin 31 25-34 PG Mean Corpuscular Hemoglobin Concent 35 32-36 G/DL Red Cell Distribution Width 13.3 10.0-14.5 % Platelet Count 285 130-400 10^3/uL Mean Platelet Volume 11.4 H 7.4-10.4 FL Neutrophils (%) (Auto) 78 H 42-75 % Lymphocytes (%) (Auto) 12 12-44 % Monocytes (%) (Auto) 9 0-12 % Eosinophils (%) (Auto) 0 0-10 % Basophils (%) (Auto) 0 0-10 % Neutrophils # (Auto) 10.9 H 1.8-7.8 X 10^3 Lymphocytes # (Auto) 1.7 1.0-4.0 X 10^3 Monocytes # (Auto) 1.3 H 0.0-1.0 X 10^3 Eosinophils # (Auto) 0.1 0.0-0.3 10^3/uL Basophils # (Auto) 0.1 0.0-0.1 10^3/uL Neutrophils % (Manual) 59 % Lymphocytes % (Manual) 27 % Monocytes % (Manual) 10 % Eosinophils % (Manual) 2 % Reactive Lymphocytes 2 % Blood Morphology Comment NORMAL D-Dimer <= 0.27 0.00-0.49 UG/ML Sodium Level 139 135-145 MMOL/L Potassium Level 3.2 L 3.6-5.0 MMOL/L Chloride Level 99 98-107 MMOL/L Carbon Dioxide Level 26 21-32 MMOL/L Anion Gap 14 5-14 MMOL/L Blood Urea Nitrogen 14 7-18 MG/DL Creatinine 2.24 H 0.60-1.30 MG/DL Estimat Glomerular Filtration Rate 34 BUN/Creatinine Ratio 6 Glucose Level 122 H 70-105 MG/DL Calcium Level 9.8 8.5-10.1 MG/DL Corrected Calcium 8.5-10.1 MG/DL Total Bilirubin 0.8 0.1-1.0 MG/DL Aspartate Amino Transf (AST/SGOT) 51 H 5-34 U/L Alanine Aminotransferase (ALT/SGPT) 76 H 0-55 U/L Alkaline Phosphatase 72 40-136 U/L Total Protein 8.1 6.4-8.2 GM/DL Albumin 4.7 H 3.2-4.5 GM/DL My Orders Orders - KARLY WELLS APRN Cbc With Automated Diff (11/21/18 14:38) Comprehensive Metabolic Panel (11/21/18 14:38) Thyroid Stimulating Hormone (11/21/18 14:38) Ekg Tracing (11/21/18 14:38) Chest Pa/Lat (2 View) (11/21/18 14:38) Fibrin Degradation Products (11/21/18 14:38) Ed Iv/Invasive Line Start (11/21/18 14:38) Manual Differential (11/21/18 14:35) Ed Iv/Invasive Line Start (11/21/18 15:12) Ns Iv 1000 Ml (Sodium Chloride 0.9%) (11/21/18 15:15) Potassium Chloride (Tablet) (Klor Con Ta (11/21/18 15:15) Medications Given in ED Current Medications Medications Dose Ordered Sig/Ever Route Start Time Stop Time Status Last Admin Dose Admin Potassium Chloride 40 meq ONCE ONCE PO 11/21/18 15:15 11/21/18 15:16 DC 11/21/18 15:18 40 MEQ Vital Signs/I&O 11/21/18 14:26 Temp 36.5 Pulse 100 Resp 20 B/P (MAP) 121/82 (95) Capillary Refill : Less Than 3 Seconds Blood Pressure Mean: 95 Departure Communication (Admissions) Unclear whether symptoms are from the sudden reduction in blood pressure from the 190s to 120s systolic or more likely a side effect of citalopram. EKG shows QTC of 529 ms, I'll have him stop citalopram for that reason as well, replace potassium orally, follow-up with primary care for different antidepressant/antianxiety medication. Impression Primary Impression: Medication side effect Additional Impressions: History of hypertension recent medication change Disposition: HOME, SELF-CARE Condition: Stable Departure-Patient Inst. Decision time for Depature: 15:20 Referrals: RUPALI ARVIZU MD (PCP/Family) Primary Care Physician Patient Instructions: High Blood Pressure (DC) Add. Discharge Instructions: 1. Your symptoms or combination of the reduction in her blood pressure from 190s to 120s and the new medication, most likely the Celexa. As such, stop the Celexa, call your doctor next week for recheck and to see if there would be a different medication that might be a better alternative. Your creatinine today was elevated at about 2.2, that should be rechecked next week as well, liver enzymes were slightly elevated. Copy Copies To 1: RUPALI ARVIZU MD, PETER J APRN Nov 21, 2018 15:09
[2018-11-21 15:13] LABS: EOSINOPHILS % (MANUAL) 2 %; LYMPHOCYTES % (MANUAL) 27 %; MONOCYTES % (MANUAL) 10 %; NEUTROPHILS % (MANUAL) 59 %; RBC MORPH NORMAL; REACTIVE LYMPHOCYTES 2 %
[2018-11-21] MEDS ORDERED: NS IV 1000 ML 1,000 ML IV SCH (15:15)
[2018-11-21] MEDS ORDERED: KCL 10 MEQ TAB (MICRO K) PO ONE (15:15)
[2018-11-21 16:01] VITALS: BP 120/84
== END 2018-11-21 16:01 | disposition home or self-care (01) ==
LOC: EDUNIT# 14:23 → ER 14:24
DX: R42 Dizziness and giddiness (principal); R20.2 Paresthesia of skin; T50.905A Adverse effect of unspecified drugs, medicaments and biological substances, initial encounter; I10 Essential (primary) hypertension
CPT/HCPCS: 36415; 71046; 80053; 84443; 85007; 85027; 85379; 93005; 96360

== ENCOUNTER 2021-05-02 16:23 | Emergency (ER) | payer SELFPAY ==
[~2021-05-02] VITALS: Ht 177 cm; Wt 100.0 kg
[~2021-05-02 16:23] MED LIST changes: +CLN.1T PO; -CLON0.1T PO
--- NOTE | 2021-05-02 16:37 | ED Cough/URI ---
General Stated Complaint: NASAL DRAINAGE, FATIGUE, NAUSEA, CHILLS Source: patient Exam Limitations: no limitations History of Present Illness Date Seen by Provider: May 02, 2021 Time Seen by Provider: 16:35 Initial Comments Patient to ER by private vehicle with nasal drainage fatigue chills body aches since last night. developed these symptoms a few days prior to him getting his. He does drink about a 12 pack daily. Chews tobacco. His blood pressure is 180/130 and he reports this is an improvement because it typically runs in the 200s systolic. He is supposed to be on antihypertensives but he does not take it because it makes him feel weird. Timing/Duration: yesterday Severity/Quality: productive cough Prior Episodes/Possible Cause: occasional episodes Associated Symptoms: cough, fever/chills, nasal congestion, nasal drainage, shortness of breath Allergies and Home Medications Allergies Coded Allergies: No Known Drug Allergies (Unverified , 08/04/13) Patient Home Medication List Home Medication List Reviewed: Yes Amlodipine Besylate (Norvasc) 10 Mg Tablet, 10 MG PO DAILY Prescribed by: KARLY WELLS on 05/02/21 1639 Clonidine HCl (Clonidine HCl) 0.1 Mg Tablet, 0.1 MG PO BID Prescribed by: CHARANJIT FOLEY on 12/05/15 0900 Hydrochlorothiazide (Hydrochlorothiazide) 25 Mg Tablet, 25 MG PO, (Reported) Entered as Reported by: BLAYNE GARCIA on 06/11/17 1240 Lisinopril (Lisinopril) 10 Mg Tablet, 10 MG PO BID, (Reported) Entered as Reported by: NEERAJ HARTMANN on 08/04/13 1848 Metoprolol Succinate (Toprol Xl) 50 Mg Tab.er.24h, 50 MG PO DAILY Prescribed by: CHARANJIT FOLEY on 12/05/15 0900 Oseltamivir Phosphate (Tamiflu) 75 Mg Cap, 75 MG PO BID Prescribed by: KARLY WELLS on 05/02/21 1706 Tramadol Hcl (Ultram) 50 Mg Tab, 50 MG PO Q4-6HR PRN for PAIN Prescribed by: KARLY WELLS on 08/04/13 1903 Review of Systems Review of Systems Constitutional: see HPI, malaise EENTM: see HPI, nose congestion, throat pain Respiratory: see HPI, cough Genitourinary: no symptoms reported Musculoskeletal: no symptoms reported Skin: no symptoms reported Psychiatric/Neurological: No Symptoms Reported Hematologic/Lymphatic: No Symptoms Reported Immunological/Allergic: no symptoms reported Past Cyeqmfw-Uyfuvx-Mffwwb Hx Seasonal Allergies Seasonal Allergies: No Past Medical History Surgeries: No Respiratory: No Cardiac: Yes Hypertension Neurological: No Reproductive Disorders: No Gastrointestinal: Yes Ulcer Musculoskeletal: No Endocrine: No Cancer: No Psychosocial: No Integumentary: No Blood Disorders: No Physical Exam Vital Signs - First Documented 05/02/21 16:24 Temp 37.3 Pulse 101 Resp 18 B/P (MAP) 180/133 (149) Pulse Ox 96 Capillary Refill : Height: 6'0" Weight: 275lbs. oz. 124.875039fj; 37.00 BMI Method:Stated General Appearance: WD/WN, no apparent distress Eyes: Bilateral Eye Normal Inspection, Bilateral Eye PERRL, Bilateral Eye EOMI HEENT: PERRL/EOMI, normal ENT inspection, TMs normal, pharyngeal erythema Neck: non-tender, full range of motion; No lymphadenopathy (R), No lymphadenopathy (L) Respiratory: no respiratory distress, no accessory muscle use Cardiovascular: regular rate, rhythm, no murmur Gastrointestinal: normal bowel sounds, non tender, soft Neurologic/Psychiatric: alert, normal mood/affect, oriented x 3 Skin: normal color, warm/dry Progress/Results/Core Measures Suspected Sepsis SIRS Temperature: Pulse: Respiratory Rate: Blood Pressure / Mean: Results/Orders Lab Results Laboratory Tests Test 05/02/21 16:30 Range/Units Influenza Type A (RT-PCR) Detected H Not Detecte Influenza Type B (RT-PCR) Not Detected Not Detecte SARS-CoV-2 RNA (RT-PCR) Not Detected Not Detecte My Orders Orders - KARLY WELLS APRN Influenza A And B By Pcr (05/02/21 16:26) Covid 19 Inhouse Test (05/02/21 16:26) Clonidine Tablet (Catapres Tablet) (05/02/21 17:15) Vital Signs/I&O 05/02/21 16:24 Temp 37.3 Pulse 101 Resp 18 B/P (MAP) 180/133 (149) Pulse Ox 96 Capillary Refill : Departure Impression Primary Impression: Influenza A Disposition: 01 HOME, SELF-CARE Condition: Stable Departure-Patient Inst. Decision time for Depature: 16:37 Referrals: RUPALI ARVIZU MD (PCP/Family) Primary Care Physician Patient Instructions: Flu Add. Discharge Instructions: 1. Take the Tamiflu as directed. Beware can cause some nausea. If you develop nausea then stop taking the Tamiflu. Return to ER for any concerns. Follow-up with your doctor. Start the blood pressure medication. Scripts Oseltamivir Phosphate (Tamiflu) 75 Mg Cap 75 MG PO BID, #10 CAP Prov: KARLY WELLS APRN 05/02/21 Amlodipine Besylate (Norvasc) 10 Mg Tablet 10 MG PO DAILY, #30 TAB Prov: KARLY WELLS APRN 05/02/21 Work/School Note: Work Release Form Date Seen in the Emergency Department: May 02, 2021 Return to Work: May 05, 2021 KARLY WELLS APRN May 02, 2021 16:37
[2021-05-02] MEDS ORDERED: AMLO10TA4 PO (16:39)
[2021-05-02] MEDS ORDERED: OSLT75C PO (17:06)
[2021-05-02] MEDS ORDERED: cloNIDine 0.1 MG (CATAPRES) TAB PO ONE (17:15)
[2021-05-02 17:16] VITALS: BP 190/127
== END 2021-05-02 17:17 | disposition home or self-care (01) ==
LOC: EDUNIT# 16:23 → ER 16:24
DX: J10.1 Influenza due to other identified influenza virus with other respiratory manifestations (principal); Z20.822 Contact with and (suspected) exposure to COVID-19
CPT/HCPCS: 87636; 99283

== ENCOUNTER 2022-11-10 11:43 | Emergency (ER) | payer OTHER ==
[~2022-11-10] VITALS: Ht 182.9 cm; Wt 110.5 kg
[~2022-11-10 11:43] MED LIST changes: +AMLO10TA4 PO; +OSLT75C PO
--- NOTE | 2022-11-10 11:58 | ED Upper Extremity ---
General Chief Complaint: Upper Extremity Stated Complaint: RIGHT WRIST Source: patient Exam Limitations: no limitations History of Present Illness Date Seen by Provider: Nov 10, 2022 Time Seen by Provider: 11:56 Initial Comments Patient is a 37-year-old male who presents ED with right wrist pain. 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 Patient was working on movements and punching yesterday when he punched a 4 x 4 post which did not break. Patient felt a sharp pain that shot from his hand into his wrist. Patient is complaining of right distal wrist pain. Denies of any hand pain. He is able to move his fingers. Denies taking anything for pain. He noticed some swelling and concern for potential fracture to his wrist. He is moving his right shoulder without difficulties. Patient denies of any distal numbness and tingling. Allergies and Home Medications Allergies Coded Allergies: No Known Drug Allergies (Unverified , 08/04/13) Patient Home Medication List Home Medication List Reviewed: Yes Amlodipine Besylate (Norvasc) 10 Mg Tablet, 10 MG PO DAILY Prescribed by: KARLY WELLS on 05/02/21 1639 Clonidine HCl (Clonidine HCl) 0.1 Mg Tablet, 0.1 MG PO BID Prescribed by: CHARANJIT FOLEY on 12/05/15 0900 Hydrochlorothiazide (Hydrochlorothiazide) 25 Mg Tablet, 25 MG PO, (Reported) Entered as Reported by: BLAYNE GARCIA on 06/11/17 1240 Lisinopril (Lisinopril) 10 Mg Tablet, 10 MG PO BID, (Reported) Entered as Reported by: NEERAJ HARTMANN on 08/04/13 1848 Metoprolol Succinate (Toprol Xl) 50 Mg Tab.er.24h, 50 MG PO DAILY Prescribed by: CHARANJIT FOLEY on 12/05/15 0900 Naproxen (Naproxen) 500 Mg Tablet, 500 MG PO Q12H Prescribed by: ADALID PARISH on 11/10/22 1242 Oseltamivir Phosphate (Tamiflu) 75 Mg Cap, 75 MG PO BID Prescribed by: KARLY WELLS on 05/02/21 1706 Tramadol Hcl (Ultram) 50 Mg Tab, 50 MG PO Q4-6HR PRN for PAIN Prescribed by: KARLY WELLS on 08/04/13 1903 Review of Systems Constitutional: No chills, No malaise, No weakness EENTM: No hearing loss, No ear pain, No blurred vision Respiratory: No cough, No dyspnea on exertion Cardiovascular: No chest pain Gastrointestinal: No abdominal pain, No diarrhea, No nausea, No vomiting Genitourinary: No decreased output, No discharge Musculoskeletal: No back pain; joint pain, joint swelling, muscle pain Skin: No change in color, No change in hair/nails All Other Systems Reviewed Negative Unless Noted: Yes Past Ukhvlrf-Zpwoqh-Djfhaz Hx Seasonal Allergies Seasonal Allergies: No Past Medical History Surgery/Hospitalization HX: HYPERTENSION, STATES HAS NOT TAKEN MEDS FOR A WHILE Surgeries: No Respiratory: No Cardiac: Yes Hypertension Neurological: No Reproductive Disorders: No Gastrointestinal: Yes Ulcer Musculoskeletal: No Endocrine: No Cancer: No Psychosocial: No Integumentary: No Blood Disorders: No Physical Exam Vital Signs Vital Signs - First Documented 11/10/22 11:50 Temp 37.0 Pulse 99 Resp 16 B/P (MAP) 220/136 (164) O2 Delivery Room Air Capillary Refill : Height, Weight, BMI Height: 6'0" Weight: 275lbs. oz. 124.324740kk; 31.00 BMI Method:Stated General Appearance: WD/WN, no apparent distress HEENT: PERRL/EOMI, normal ENT inspection, TMs normal, pharynx normal Neck: non-tender, full range of motion, supple Cardiovascular: regular rate, rhythm, no edema, no gallop, no JVD Respiratory: chest non-tender, lungs clear, normal breath sounds, no respiratory distress, no accessory muscle use Gastrointestinal: normal bowel sounds, non tender, soft, no organomegaly Back: normal inspection, no CVA tenderness Shoulder: normal inspection (Right shoulder), non-tender, no evidence of injury Elbow/Forearm: normal inspection, non-tender, no evidence of injury, Right Wrist: Yes pain (Tenderness to palpate right distal ulna. Flexion extension intact. No snuffbox tenderness.) Hand: normal inspection, non-tender (Patient has no third through fifth MCP joint tenderness. Normal active range of motion of the fingertips. Neurovascular intact. No metacarpal tenderness.), no evidence of injury, Right Neurologic/Psychiatric: biologist aide II-XII nml as tested, no motor/sensory deficits, alert, normal mood/affect, oriented x 3 Skin: normal color, warm/dry Progress/Results/Core Measures Results/Orders My Orders Orders - HARRISON ROSA Wrist, Right, 3 Views Or More (11/10/22 11:55) Amlodipine Tablet (Amlodipine Tablet) (11/11/22 09:00) Amlodipine Tablet (Amlodipine Tablet) (11/10/22 12:07) Vital Signs/I&O 11/10/22 11:50 Temp 37.0 Pulse 99 Resp 16 B/P (MAP) 220/136 (164) O2 Delivery Room Air Departure Communication (PCP) Patient with a right wrist injury. Patient was hitting a 4 x 4 post practicing his martial arts. Patient complaining of pain along the distal ulna. Normal range of motion. No obvious bone deformity. He has no metacarpal or hand tenderness. X-ray was obtained which did not note any acute fracture. Patient refused anything for pain. Was placed in a Velcro splint. Orthopedic follow-up in 7 to 10 days. Ice and anti-inflammatories. If any worsening symptoms to return back to ED for further evaluation. Patient was hypertensive 220/136. Patient has been off his amlodipine for the past 2 months. Received a dose of 10 mg here. Slight improvement. Currently asymptomatic. Suggest starting back on his amlodipine. After amlodipine blood pressure showed 196/135. Continue monitoring at home. Denies headache, dizziness, chest pain, shortness of breat h. No known history of coronary artery disease, CHF. Impression Primary Impression: Wrist sprain Disposition: 01 HOME, SELF-CARE Condition: Stable Departure-Patient Inst. Decision time for Depature: 12:42 Referrals: VENKATA NUNEZ MD (PCP) Primary Care Physician RUPALI ARVIZU MD (Family) Primary Care Physician ILANA POTTER MD Patient Instructions: Wrist Sprain ED Add. Discharge Instructions: Recommend ice, anti-inflammatories. Orthopedic follow-up in 7 to 10 days for reevaluation All discharge instructions reviewed with patient and/or family. Voiced understa nding. Scripts Naproxen (Naproxen) 500 Mg Tablet 500 MG PO Q12H, #20 TAB Prov: HARRISON ROSA 11/10/22 HARRISON ROSA Nov 10, 2022 11:58
[2022-11-10] MEDS ORDERED: amLODIPine 5 MG TABLET ONE (12:07)
--- NOTE | 2022-11-10 12:36 | Diagnostic Imaging Report ---
EXAMINATION: Right wrist radiographs. EXAM DATE: 11/10/2022 12:08 PM. COMPARISON: None available. HISTORY: Right wrist pain. TECHNIQUE: Three views. FINDINGS: There is no acute fracture, dislocation, or destructive osseous process. The joint spaces are normal. The soft tissues are normal. IMPRESSION: No acute osseous abnormality. Dictated by: Dictated on workstation # [id number]
[2022-11-10] MEDS ORDERED: NAPR-915 PO (12:42)
[2022-11-10 12:57] VITALS: BP 196/135
[2022-11-11] MEDS ORDERED: amLODIPine 5 MG TABLET PO SCH (09:00)
== END 2022-11-10 13:03 | disposition home or self-care (01) ==
LOC: EDUNIT# 11:43 → ER 11:46
DX: S63.501A Unspecified sprain of right wrist, initial encounter (principal); Z28.310 Unvaccinated for COVID-19; Y04.8XXA Assault by other bodily force, initial encounter
CPT/HCPCS: 73110